=== PATIENT | female | born 1985 | race Caucasian/White ===

== ENCOUNTER → 2016-07-25 | Outpatient (CLI) | payer OTHER ==
--- NOTE | ~2016-07-25 | HM ---
Unit #: [id number] #: [id number] Patient: MAURICE BARAJAS [id number] [address] [address] [id number] O MR#: [id number] NAME: MAURICE BARAJAS : 1985 SEX: F STUDY DATE/TIME: 08/03/2016 UNIT: CE ROOM: STUDY DESCRIPTION: Holter monitor Attending Physician: Dexter Russell M.D. Referring Physician: Dexter Russell M.D. Primary Care Physician: [facility]. CARDIOLOGY REPORT EXAM Holter monitor. DATE APPLIED July 25, 2016. DATE SCANNED August 01, 2016. ORDERED BY Dexter Russell M.D. READ BY Dexter Russell M.D. INDICATION Abnormal ECG, PACs, PVCs. SUMMARY The patient was monitored for 24 hours. The average heart rate was 87 beats per minute, and the rhythm was sinus. The maximum heart rate of 182 beats per minute occurred at 11:23 a.m. The minimum heart rate of 53 beats per minute occurred at 7:35 a.m. There were no pauses noted. A total of 124,827 QRS complexes were analyzed. Good recording quality. SUPRAVENTRICULAR ECTOPY: There were 4 isolated beats with no runs. VENTRICULAR ECTOPY: There were 2 isolated beats with no runs. SYMPTOMS: None. PATIENT ACTIVATED EVENTS: None. IMPRESSION 1. Normal Holter. 2. No significant atrial or ventricular ectopy. 3. No change in therapy based on this study. Unit #: [id number] #: [id number] Patient: MAURICE BARAJAS Dictated by... Latasha Parker/bree TD: 08/04/2016 07:40 JOB #: [id number] CARDIOLOGY REPORT X Dexter Russell MD HOLTER MONITOR REPORT
--- NOTE | ~2016-07-25 | ST ---
Unit #: [id number] #: [id number] Patient: MAURICE BARAJAS [id number] [address] [address] [id number] O MR#: [id number] NAME: MAURICE BARAJAS : 1985 SEX: F STUDY DATE/TIME: 07/25/2016 UNIT: CEKG ROOM: STUDY DESCRIPTION: Attending Physician: Dexter Russell M.D. Referring Physician: Dexter Russell M.D. Primary Care Physician: [facility]. CARDIOLOGY REPORT EXAM Stress ECG. INDICATIONS Chest pain. SUMMARY The patient exercised on a Nils protocol to maximal effort. The patient felt fatigued but no chest pain with stress. The rest and stress ECG showed nonspecific ST changes in the inferior lateral leads. The patient completed seven minutes of exercise. Heart rate increased from 133 to 182 (96%). Blood pressure increased to 133/94 to 134/81. The patient was unable to provide blood pressure during the test. The peak blood pressure was immediately after the test. The rest and stress ECG showed no diagnostic ST shifts, no dysrhythmias, and no heart block. IMPRESSION 1. Tachycardia at rest is noted, heart rate 109. 2. No stress ECG changes. 3. Consider beta blockade when patient is seen in followup. No acute changes needed. Dictated by... Latasha Parker/jaylan TD: 07/26/2016 08:29 JOB #: [id number] CARDIOLOGY REPORT X Dexter Russell MD CARDIOLOGY REPORT
== END | disposition home or self-care (01) ==
LOC: CEKG 09:53
DX: R00.0 Tachycardia, unspecified (principal); R00.2 Palpitations; R94.31 Abnormal electrocardiogram [ECG] [EKG]
CPT/HCPCS: 93017; 93225; 93226